=== PATIENT | male | born 1935 | race Caucasian/White ===

== ENCOUNTER 2021-07-26 10:02 | Outpatient (CLI) | payer MEDICARE ==
[2021-07-26 11:47] LABS: Hemoglobin 10.1 g/dL (13.5-17.5); Mean Corpuscular HGB CONC 37.4 g/dL (32.0-36.0); Mean Corpuscular Hemoglobin 29.2 pg (27.0-33.0); Mean Platelet Volume 8.8 fl (7.4-10.4); Platelet Count 243 10x3/uL (150-450); RBC Distribution Width 13.1 % (11.5-14.5); Red Blood Cell (RBC) Count 3.46 10x6/uL (4.32-5.72); White Blood Cell (WBC) Count 7.7 10x3/uL (3.5-10.5)
[2021-07-26 12:06] LABS: Prothrombin Time 10.8 sec (9.5-12.1)
[2021-07-26 12:10] LABS: Anion Gap 13 mmol/L (10-20); BUN (Urea Nitrogen) 28 mg/dL (8.4-25.7); Calc. Creatinine Clearance 0 mL/min (70-130); Calcium 8.7 mg/dL (7.8-10.44); Carbon Dioxide 23 mmol/L (23-31); Chloride 94 mmol/L (98-107); Glucose 86 mg/dL (83-110); Potassium 4.5 mmol/L (3.5-5.1); Sodium 125 mmol/L (136-145)
[2021-07-26 17:35] LABS: SARS-CoV-2 PCR by NAA Not Detected (NotDetected)
== END 2021-07-26 10:03 | disposition home or self-care (01) ==
LOC: CSHLAB 10:02
PROVIDERS: ATTEND Specialist
DX: Z01.818 Encounter for other preprocedural examination (principal); Z20.822 Contact with and (suspected) exposure to COVID-19
CPT/HCPCS: 71046; 80048; 85027; 85610; 85730; 93005; 93010; U0003; U0005

== ENCOUNTER → 2021-07-30 | Day surgery (SDC) | payer MEDICARE ==
[~2021-07-30] MED LIST: Acetylcysteine 800 MG/4 ML VIAL ONE; Atropine Sulfate 0.4 mg/1 ml Vial ONE; FLU VACC QS2021-22(65YR UP)/PF 240 MCG/0.7 ML SYRINGE IM ONE; Fentanyl 100 MCG/2 ML VIAL ONE; Heparin 10,000 UNITS/ 10 ML VIAL ONE; Lidocaine 1% (PF) 30 ML VIAL ONE; Midazolam HCl 2 mg/2 ml Vial ONE; PHENYLEPHRINE-NS 100 MCG/ML 10 ML SYRINGE ONE; Phenylephrine 40 MG/NS 250 ML 0 ML ONE; Sodium Chloride 0.9% 1,000 ML ONE
[2021-07-30 07:49] VITALS: BMI 22.2
[2021-07-30 07:50] VITALS: BP 198/86; TEMP 98.2
== END ==
LOC: CSHSDC 06:42
PROVIDERS: ATTEND Specialist
DX: I65.23 Occlusion and stenosis of bilateral carotid arteries (principal); I77.1 Stricture of artery; I70.1 Atherosclerosis of renal artery; I70.92 Chronic total occlusion of artery of the extremities; I70.201 Unspecified atherosclerosis of native arteries of extremities, right leg
CPT/HCPCS: 36140 ×2; 36215; 36222; 36225; 36227; 36245; 75625; 75716; C1760; J0461; J1644; J2001; J2250; J3010; J7050